=== PATIENT | female | born 1985 | race African-American/Black ===

== ENCOUNTER 2021-04-25 20:02 | Emergency (ER) | payer BC | END 2021-04-25 22:09 | disposition home or self-care (01) | LOC: CSHERS 20:02 | DX: M79.641 Pain in right hand (principal); I10 Essential (primary) hypertension; K21.9 Gastro-esophageal reflux disease without esophagitis; J45.909 Unspecified asthma, uncomplicated; D64.9 Anemia, unspecified; F17.210 Nicotine dependence, cigarettes, uncomplicated; Z79.899 Other long term (current) drug therapy ==